=== PATIENT | female | born 2005 | race Caucasian/White ===

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

== ENCOUNTER 2024-02-17 09:21 | Emergency (ER) | payer BC, OTHER ==
[~2024-02-17] VITALS: Ht 147.3 cm; Wt 39.3 kg
[~2024-02-17 09:21] MED LIST changes: +MONT-5 PO; -SING10TA32 PO
[2024-02-17] MEDS ORDERED: MAGN100T PO (09:32)
[2024-02-17] MEDS ORDERED: CVS50CAP PO (09:32)
[2024-02-17] MEDS: BISACODYL 10MG SUPP PR ONE (12:14)
[2024-02-17] MEDS ORDERED: MIRA3350 PO (13:04)
[2024-02-17 13:20] VITALS: BP 102/72; TEMP 98; O2SAT 94
== END 2024-02-17 13:24 | disposition home or self-care (01) ==
LOC: M ED 09:21
DX: K59.00 Constipation, unspecified (principal); J45.909 Unspecified asthma, uncomplicated; Z79.52 Long term (current) use of systemic steroids; Z79.899 Other long term (current) drug therapy

== ENCOUNTER → 2025-04-19 | Outpatient (CLI) | payer OTHER ==
[~2025-04-19] MED LIST changes: +CVS50CAP PO; +MAGN100T PO; +MIRA3350 PO
[2025-04-19 15:08] LABS: ALT/SGPT 24 U/L (7.0-40); AST/SGOT 21 U/L (<34); CALCIUM LEVEL 9.1 MG/DL (8.5-10.1); CARBON DIOXIDE LEVEL 29 MMOL/L (20-31); CHLORIDE LEVEL 106 MMOL/L (98-107); CREATININE FOR GFR 0.54 MG/DL (0.55-1.30); GLOMERULAR FILTRATION RATE > 90.0 (>60); POTASSIUM SERUM 4.3 MMOL/L (3.5-5.1); SODIUM LEVEL 143 MMOL/L (136-145)
[2025-04-19 15:15] LABS: BASO # 0.0 10^3/uL (0.0-0.2); BASO % 0.5 % (0.0-1.0); EOS # 0.0 10^3/uL (0.0-0.5); EOS % 0.5 % (0.0-3.0); LYMPH # 1.6 10^3/uL (1.5-5.0); LYMPH % 28.5 % (24.0-44.0); MONO # 0.4 10^3/uL (0.0-0.8); MONO % 7.9 % (2.0-8.0); NEUTROPHILS # 3.5 10^3/uL (1.5-8.5); NEUTROPHILS % 62.4 % (36.0-66.0); PLATELET COUNT, AUTOMATED 110 10^3/uL (150-450)
[2025-04-19 15:34] LABS: HIV 1&2 SCREEN NEGATIVE (NEGATIVE)
[2025-04-19 15:42] LABS: HEPATITIS C VIRUS ABY INDEX < 0.02 INDEX (<0.8)
== END ==
LOC: M PLALAB 10:20
PROVIDERS: ATTEND Nurse Practitioner Family
DX: L40.8 Other psoriasis (principal)